=== PATIENT | female | born 1940 | race African-American/Black ===

== ENCOUNTER 2022-05-24 10:09 | Emergency (ER) | payer MEDICARE, BC ==
[~2022-05-24] VITALS: Ht 167.6 cm; Wt 61.0 kg
[2022-05-24 13:04] VITALS: BP 136/69
== END 2022-05-24 13:29 | disposition home or self-care (01) ==
LOC: ER 11:11
DX: E11.649 Type 2 diabetes mellitus with hypoglycemia without coma (principal); R53.1 Weakness; J02.9 Acute pharyngitis, unspecified
CPT/HCPCS: 71045; 82962; 99283

== ENCOUNTER 2022-07-22 19:23 | Emergency (ER) | payer MEDICARE, BC ==
[~2022-07-22] VITALS: Ht 160 cm; Wt 56.3 kg
[2022-07-22] MEDS ORDERED: TETRACAINE 0.5% OPHTH DROPS 4ML LEFTEYE ONE (19:30)
[2022-07-22] MEDS ORDERED: FLUORESCEIN SODIUM 1MG/STRIP LEFTEYE ONE (19:30)
[2022-07-22] MEDS ORDERED: TOPUD PO (20:26)
[2022-07-22 20:38] VITALS: BP 122/66
== END 2022-07-22 20:45 | disposition home or self-care (01) ==
LOC: ER 19:23
DX: S02.40FA Zygomatic fracture, left side, initial encounter for closed fracture (principal); S02.842A Fracture of lateral orbital wall, left side, initial encounter for closed fracture; H11.32 Conjunctival hemorrhage, left eye; E11.9 Type 2 diabetes mellitus without complications; W19.XXXA Unspecified fall, initial encounter; Y93.89 Activity, other specified; Y92.89 Other specified places as the place of occurrence of the external cause; Y99.8 Other external cause status
CPT/HCPCS: 70486; 99284